=== PATIENT | male | born 1940 | race African-American/Black ===

== ENCOUNTER 2020-04-13 18:16 | Inpatient (IN) ==
[2020-04-13] MEDS ORDERED: HEPARIN/NACL 0.9% 2 UNITS/ML 1,000 ML IV ONE (19:07)
[2020-04-13] MEDS ORDERED: LIDOCAINE 1% 20 ML VIAL ONE (19:07)
[2020-04-13] MEDS ORDERED: fentaNYL 100 MCG/2 ML VIAL ONE (19:13)
[2020-04-13] MEDS ORDERED: MIDAZOLAM 2 MG/2 ML VIAL ONE ×2 (19:13→20:07)
[2020-04-13] MEDS ORDERED: HEPARIN 5,000 UNIT/1 ML VIAL ONE ×2 (20:31→20:55)
[2020-04-13] MEDS ORDERED: METOPROLOL TARTRATE 5 MG/5 ML VIAL IV ONE ×2 (20:50→21:00)
[2020-04-13] MEDS ORDERED: HEPARIN/NACL 0.9% 2 UNITS/ML 500 ML IV ONE (20:52)
[2020-04-13] MEDS ORDERED: ZALEPLON 5 MG CAPSULE PO PRN (21:07)
[2020-04-13] MEDS ORDERED: ALBUTEROL 2.5 MG/3 ML NEB RESP TX PRN ×2 (21:07)
[2020-04-13] MEDS ORDERED: DEXTROSE 50% 25 GM/50 ML VIAL IV PRN (21:07)
[2020-04-13] MEDS ORDERED: hydrALAZINE 20 MG/1 ML VIAL IV PRN (21:07)
[2020-04-13] MEDS ORDERED: DOCUSATE SODIUM 100 MG CAPSULE PO PRN (21:07)
[2020-04-13] MEDS ORDERED: ONDANSETRON 4 MG/2 ML VIAL IV PRN ×2 (21:07)
[2020-04-13] MEDS ORDERED: GLUCAGON 1 MG VIAL IM PRN (21:07)
[2020-04-13] MEDS ORDERED: ACETAMINOPHEN 325 MG TABLET PO PRN (21:07)
[2020-04-13] MEDS ORDERED: NIFEdipine 10 MG CAPSULE PO PRN (22:05)
[2020-04-13] MEDS ORDERED: INFLUENZA VIRUS VACCINE 0.5 ML SYRINGE IM ONE (22:12)
[2020-04-14 02:46] LABS: ABG Base Excess -0.4 MMOL/L (-2.5-2.5); ABG HCO3 25.4 MMOL/L (20-26); ABG PCO2 46.7 MM HG (35-48); ABG PH 7.354 (7.35-7.45); ABG PO2 71.9 MM HG (80-95); ABG TCO2 26.9 MMOL/L (23-27); Allen Test Positive
[2020-04-14 03:45] LABS: Basophils % 0.3 % (0.0-0.8); Eosinophils % 0.1 % (0.00-10.9); Hematocrit 33.2 VOL% (42.0-52.0); Hemoglobin 10.2 GM/DL (14.0-18.0); Immature Granulocytes % 1.5 %; Immature Granulocytes Absolute 0.23 #; Lymphocytes % 6.4 % (21.2-54.2); Mean Corpuscular HGB Conc 30.7 GM/DL (32-36); Mean Corpuscular Volume 84.5 FL (87-102); Mean Platelet Volume 10.4 FL (9.6-12.0); Monocytes % 4.8 % (1.7-12.7); Neutrophils % 86.9 % (38.7-73.9); Platelet Count 170 T/CUMM (130-400); Red Blood Count 3.93 MC/CUMM (3.8-5.5); White Blood Count 15.6 T/CUMM (4-12)
[2020-04-14 04:06] LABS: Alanine Aminotransferase < 9 U/L (16-61); Albumin 2.8 G/DL (3.4-5.0); Alkaline Phosphatase 84 U/L (45-117); Aspartate Amino Transferase 19 U/L (0-37); Blood Urea Nitrogen 20 MG/DL (7-18); Calcium 8.7 MG/DL (8.5-10.1); Estimated Glom Filtration Rate 107 ML/MIN; Glucose 177 MG/DL (74-106); Osmolality,Calculated 281.7 MOS/KG (273-304); Total Protein 6.4 G/DL (6.4-8.3)
[2020-04-14 04:24] LABS: Band Neutrophils 12 % (0-10); Lymphocytes 5 % (20-55); Segmented Neutrophils 77 % (50-85); Total Cells Counted 100
[2020-04-14 04:25] LABS: Hypochromasia 1+; Microcytosis Slight; Ovalocytes Few; Platelet Estimate Adequate
[2020-04-14] MEDS: INSULIN REGULAR 100 UNIT/ML SUBCUT SCH ×4 (07:42→21:15)
[2020-04-14] MEDS ORDERED: MAGNESIUM SULF RIDER 2 GM in PREMIX 1 EACH IV ONE (08:17)
[2020-04-14] MEDS: GABAPENTIN 100 MG CAPSULE PO SCH ×3 (08:58→21:15)
[2020-04-14] MEDS: glipiZIDE 10 MG TABLET PO SCH (08:58)
[2020-04-14] MEDS: PANTOPRAZOLE 40 MG TABLET PO SCH (08:58)
[2020-04-14] MEDS: SPIRONOLACTONE 25 MG TABLET PO SCH (08:58)
[2020-04-14] MEDS: RIVAROXABAN 15 MG TABLET PO SCH ×2 (08:58→17:00)
[2020-04-14] MEDS: CHOLECALCIFEROL 1,000 UNIT TABLET PO SCH (08:59)
[2020-04-14] MEDS ORDERED: PANTOPRAZOLE 40 MG TABLET PO SCH (09:00)
[2020-04-14] MEDS ORDERED: DIGOXIN 0.5 MG/2 ML AMP IV ONE ×2 (16:40→18:00)
[2020-04-14] MEDS ORDERED: METOPROLOL TARTRATE 5 MG/5 ML VIAL IV ONE (18:11)
[2020-04-14] MEDS ORDERED: AMIODARONE INJ 150 MG in DEXTROSE 5% 100 ML IV ONE (18:12)
[2020-04-14] MEDS ORDERED: AMIODARONE INJ 450 MG in DEXTROSE 5% 241 ML IV SCH (18:30)
[2020-04-14] MEDS: ATORVASTATIN 40 MG TABLET PO SCH (21:15)
[2020-04-15 04:11] LABS: Basophils % 0.2 % (0.0-0.8); Eosinophils # 0.3 10*3/uL (0.0-0.87); Eosinophils % 2.5 % (0.00-10.9); Hematocrit 31.3 VOL% (42.0-52.0); Hemoglobin 9.6 GM/DL (14.0-18.0); Immature Granulocytes % 1.4 %; Immature Granulocytes Absolute 0.17 #; Lymphocytes # 0.9 10*3/uL (1.4-4.0); Lymphocytes % 7.4 % (21.2-54.2); Mean Corpuscular HGB Conc 30.7 GM/DL (32-36); Mean Corpuscular Volume 85.5 FL (87-102); Monocytes % 4.3 % (1.7-12.7); Neutrophils % 84.2 % (38.7-73.9); Platelet Count 158 T/CUMM (130-400); Red Blood Count 3.66 MC/CUMM (3.8-5.5); Red Cell Distribution Width 15.1 % (9.3-17.3); White Blood Count 11.7 T/CUMM (4-12)
[2020-04-15 04:32] LABS: Calcium 8.8 MG/DL (8.5-10.1)
[2020-04-15 04:42] LABS: Band Neutrophils 2 % (0-10); Eosinophils 2 % (0-10); Hypochromasia Slight; Lymphocytes 4 % (20-55); Microcytosis Slight; Platelet Estimate Normal; Segmented Neutrophils 89 % (50-85); Total Cells Counted 100
[2020-04-15] MEDS: INSULIN REGULAR 100 UNIT/ML SUBCUT SCH ×4 (08:37→22:49)
[2020-04-15] MEDS: CHOLECALCIFEROL 1,000 UNIT TABLET PO SCH (09:10)
[2020-04-15] MEDS: GABAPENTIN 100 MG CAPSULE PO SCH ×3 (09:11→20:50)
[2020-04-15] MEDS: glipiZIDE 10 MG TABLET PO SCH (09:11)
[2020-04-15] MEDS: AMIODARONE 200 MG TABLET PO SCH ×2 (09:11→20:50)
[2020-04-15] MEDS: RIVAROXABAN 15 MG TABLET PO SCH ×2 (09:11→16:25)
[2020-04-15] MEDS: PANTOPRAZOLE 40 MG TABLET PO SCH (09:11)
[2020-04-15] MEDS: SPIRONOLACTONE 25 MG TABLET PO SCH (09:11)
[2020-04-15] MEDS: MORPHINE 4 MG/1 ML VIAL IV PRN ×2 (19:07→22:49)
[2020-04-15] MEDS: ATORVASTATIN 40 MG TABLET PO SCH (20:49)
[2020-04-16] MEDS: MORPHINE 4 MG/1 ML VIAL IV PRN ×3 (03:18→23:46)
[2020-04-16 04:36] LABS: Calcium 8.7 MG/DL (8.5-10.1); Osmolality,Calculated 280.7 MOS/KG (273-304)
[2020-04-16] MEDS ORDERED: DIAZEPAM 5 MG TABLET PO ONE (10:06)
[2020-04-16 10:58] LABS: INR 1.7; PT Patient Result 17.7 SECS (9.8-11.9)
[2020-04-16] MEDS: INSULIN REGULAR 100 UNIT/ML SUBCUT SCH ×3 (13:18→21:57)
[2020-04-16] MEDS: AMIODARONE 200 MG TABLET PO SCH ×3 (15:26→21:56)
[2020-04-16] MEDS: RIVAROXABAN 15 MG TABLET PO SCH ×2 (15:26→17:08)
[2020-04-16] MEDS: GABAPENTIN 100 MG CAPSULE PO SCH ×3 (15:26→21:57)
[2020-04-16] MEDS: glipiZIDE 10 MG TABLET PO SCH (15:26)
[2020-04-16] MEDS: SODIUM CHLORIDE 0.45% 1,000 ML IV SCH (15:27)
[2020-04-16] MEDS: SPIRONOLACTONE 25 MG TABLET PO SCH (15:35)
[2020-04-16] MEDS: CHOLECALCIFEROL 1,000 UNIT TABLET PO SCH (15:35)
[2020-04-16] MEDS: PANTOPRAZOLE 40 MG TABLET PO SCH (15:35)
[2020-04-16] MEDS: ATORVASTATIN 40 MG TABLET PO SCH (21:57)
[2020-04-17] MEDS: MORPHINE 4 MG/1 ML VIAL IV PRN ×2 (02:50→20:23)
[2020-04-17 06:36] LABS: Basophils % 0.3 % (0.0-0.8); Eosinophils # 0.3 10*3/uL (0.0-0.87); Eosinophils % 2.7 % (0.00-10.9); Hematocrit 31.6 VOL% (42.0-52.0); Hemoglobin 9.9 GM/DL (14.0-18.0); Immature Granulocytes % 0.5 %; Immature Granulocytes Absolute 0.05 #; Lymphocytes # 0.8 10*3/uL (1.4-4.0); Lymphocytes % 8.1 % (21.2-54.2); Mean Corpuscular HGB Conc 31.3 GM/DL (32-36); Mean Corpuscular Volume 83.6 FL (87-102); Mean Platelet Volume 10.8 FL (9.6-12.0); Monocytes % 5.9 % (1.7-12.7); Neutrophils % 82.5 % (38.7-73.9); Platelet Count 191 T/CUMM (130-400); Red Blood Count 3.78 MC/CUMM (3.8-5.5); Red Cell Distribution Width 15.2 % (9.3-17.3); White Blood Count 9.5 T/CUMM (4-12)
[2020-04-17 06:48] LABS: Calcium 9.1 MG/DL (8.5-10.1); Osmolality,Calculated 277.8 MOS/KG (273-304)
[2020-04-17] MEDS: INSULIN REGULAR 100 UNIT/ML SUBCUT SCH ×4 (08:10→21:49)
[2020-04-17] MEDS: PANTOPRAZOLE 40 MG TABLET PO SCH (10:10)
[2020-04-17] MEDS: SPIRONOLACTONE 25 MG TABLET PO SCH (10:10)
[2020-04-17] MEDS: RIVAROXABAN 15 MG TABLET PO SCH ×2 (10:10→17:04)
[2020-04-17] MEDS: AMIODARONE 200 MG TABLET PO SCH (10:10)
[2020-04-17] MEDS: GABAPENTIN 100 MG CAPSULE PO SCH ×3 (10:10→21:49)
[2020-04-17] MEDS: CHOLECALCIFEROL 1,000 UNIT TABLET PO SCH (10:11)
[2020-04-17] MEDS: glipiZIDE 10 MG TABLET PO SCH (10:11)
[2020-04-17] MEDS: SODIUM CHLORIDE 0.45% 1,000 ML IV SCH (16:12)
[2020-04-17] MEDS: ATORVASTATIN 40 MG TABLET PO SCH (21:49)
[2020-04-18] MEDS: MORPHINE 4 MG/1 ML VIAL IV PRN ×2 (00:11→03:30)
[2020-04-18 05:30] LABS: Basophils % 0.4 % (0.0-0.8); Eosinophils # 0.2 10*3/uL (0.0-0.87); Eosinophils % 2.8 % (0.00-10.9); Hematocrit 30.1 VOL% (42.0-52.0); Hemoglobin 9.3 GM/DL (14.0-18.0); Immature Granulocytes Absolute 0.08 #; Lymphocytes # 0.9 10*3/uL (1.4-4.0); Mean Corpuscular HGB Conc 30.9 GM/DL (32-36); Mean Corpuscular Volume 82.5 FL (87-102); Mean Platelet Volume 10.3 FL (9.6-12.0); Monocytes % 7.1 % (1.7-12.7); Neutrophils % 77.7 % (38.7-73.9); Platelet Count 213 T/CUMM (130-400); Red Blood Count 3.65 MC/CUMM (3.8-5.5); Red Cell Distribution Width 15.2 % (9.3-17.3); White Blood Count 7.8 T/CUMM (4-12)
[2020-04-18 06:06] LABS: Calcium 9.4 MG/DL (8.5-10.1); Osmolality,Calculated 281.5 MOS/KG (273-304)
[2020-04-18] MEDS: INSULIN REGULAR 100 UNIT/ML SUBCUT SCH ×4 (09:08→21:16)
[2020-04-18] MEDS: CHOLECALCIFEROL 1,000 UNIT TABLET PO SCH (09:09)
[2020-04-18] MEDS: TAMSULOSIN 0.4 MG CAPSULE PO SCH (09:09)
[2020-04-18] MEDS: glipiZIDE 10 MG TABLET PO SCH (09:10)
[2020-04-18] MEDS: SPIRONOLACTONE 25 MG TABLET PO SCH (09:10)
[2020-04-18] MEDS: RIVAROXABAN 15 MG TABLET PO SCH ×2 (09:10→17:17)
[2020-04-18] MEDS: POTASSIUM CHLORIDE 20 MEQ TABLET PO SCH (09:10)
[2020-04-18] MEDS: PANTOPRAZOLE 40 MG TABLET PO SCH (09:10)
[2020-04-18] MEDS: GABAPENTIN 100 MG CAPSULE PO SCH ×3 (09:17→21:16)
[2020-04-18] MEDS: SODIUM CHLORIDE 0.45% 1,000 ML IV SCH (09:46)
[2020-04-18] MEDS: ATORVASTATIN 40 MG TABLET PO SCH (21:02)
[2020-04-19] MEDS: INSULIN REGULAR 100 UNIT/ML SUBCUT SCH ×4 (08:33→20:51)
[2020-04-19] MEDS: RIVAROXABAN 15 MG TABLET PO SCH ×2 (08:50→17:50)
[2020-04-19] MEDS: glipiZIDE 10 MG TABLET PO SCH (08:50)
[2020-04-19] MEDS: CHOLECALCIFEROL 1,000 UNIT TABLET PO SCH (08:50)
[2020-04-19] MEDS: PANTOPRAZOLE 40 MG TABLET PO SCH (08:51)
[2020-04-19] MEDS: TAMSULOSIN 0.4 MG CAPSULE PO SCH (08:51)
[2020-04-19] MEDS: SPIRONOLACTONE 25 MG TABLET PO SCH (08:51)
[2020-04-19] MEDS: POTASSIUM CHLORIDE 20 MEQ TABLET PO SCH (08:51)
[2020-04-19] MEDS: GABAPENTIN 100 MG CAPSULE PO SCH ×3 (08:53→20:52)
[2020-04-19] MEDS: SODIUM CHLORIDE 0.45% 1,000 ML IV SCH (18:23)
[2020-04-19] MEDS: ATORVASTATIN 40 MG TABLET PO SCH (20:50)
[2020-04-20] MEDS: INSULIN REGULAR 100 UNIT/ML SUBCUT SCH ×2 (08:28→12:02)
[2020-04-20] MEDS: RIVAROXABAN 15 MG TABLET PO SCH (08:59)
[2020-04-20] MEDS: PANTOPRAZOLE 40 MG TABLET PO SCH (09:00)
[2020-04-20] MEDS: SPIRONOLACTONE 25 MG TABLET PO SCH (09:01)
[2020-04-20] MEDS: glipiZIDE 10 MG TABLET PO SCH (09:02)
[2020-04-20] MEDS: POTASSIUM CHLORIDE 20 MEQ TABLET PO SCH (09:02)
[2020-04-20] MEDS: CHOLECALCIFEROL 1,000 UNIT TABLET PO SCH (09:02)
[2020-04-20] MEDS: TAMSULOSIN 0.4 MG CAPSULE PO SCH (09:03)
[2020-04-20] MEDS: GABAPENTIN 100 MG CAPSULE PO SCH (09:03)
[2020-04-20 16:16] VITALS: BP 123/69
== END 2020-04-20 16:56 | disposition home or self-care (01) | DRG 163 ==
LOC: N.CC → SUATTDRO 19:40 → INTOOBSV 19:40 → N.CC 19:40 → SUATTDRO 21:07 → N.TELEN 04-15 14:13
PROVIDERS: ADMIT Internal Medicine Cardiovascular Disease; ATTEND Internal Medicine

== ENCOUNTER 2020-08-15 17:47 | Observation (INO) ==
[2020-08-15] MEDS ORDERED: ONDANSETRON 4 MG/2 ML VIAL IV STA ×2 (18:32→19:15)
[2020-08-15 18:52] LABS: Basophils % 0.2 % (0.0-0.8); Eosinophils # 0.2 10*3/uL (0.0-0.87); Eosinophils % 2.5 % (0.00-10.9); Hematocrit 35.7 VOL% (42.0-52.0); Immature Granulocytes % 0.2 %; Immature Granulocytes Absolute 0.01 #; Lymphocytes # 2.1 10*3/uL (1.4-4.0); Lymphocytes % 33.6 % (21.2-54.2); Mean Corpuscular HGB Conc 30.8 GM/DL (32-36); Mean Corpuscular Volume 79.2 FL (87-102); Mean Platelet Volume 10.4 FL (9.6-12.0); Neutrophils % 58.5 % (38.7-73.9); Platelet Count 199 T/CUMM (130-400); Red Blood Count 4.51 MC/CUMM (3.8-5.5); Red Cell Distribution Width 19.2 % (9.3-17.3); White Blood Count 6.4 T/CUMM (4-12)
[2020-08-15 19:13] LABS: INR 1.2; PT Patient Result 12.5 SECS (9.8-11.9); Partial Thromboplastin Time 31.3 SECS (23.9-33.8)
[2020-08-15 19:14] LABS: Alanine Aminotransferase 26 U/L (16-61); Albumin 3.3 G/DL (3.4-5.0); Alkaline Phosphatase 109 U/L (45-117); Aspartate Amino Transferase 16 U/L (0-37); Blood Urea Nitrogen 19 MG/DL (7-18); Calcium 9.2 MG/DL (8.5-10.1); Carbon Dioxide 29 MMOL/L (21-32); Estimated Glom Filtration Rate 108 ML/MIN; Glucose 86 MG/DL (74-106); Osmolality,Calculated 277.5 MOS/KG (273-304); Potassium 3.9 MMOL/L (3.5-5.1); Sodium 139 MMOL/L (136-145); Troponin I < 0.015 NG/ML (0.00-0.045)
[2020-08-15] MEDS ORDERED: MECLIZINE 25 MG TABLET PO STA (19:16)
[2020-08-15 19:25] LABS: Bilirubin,Urine Negative (Negative); Blood, Urine Negative (Negative); Calcium Oxalate Crystals,Urine Occasional /HPF (Few); Glucose,Urine (UA) Negative (Negative); Hyaline Casts,Urine 9 /LPF (0-3); Ketones,Urine Negative (Negative); Mucus,Urine Few /LPF (Occasional); Nitrite,Urine Negative (Negative); Protein,Urine Negative; RBC,Urine 5 /HPF (0-4); Squamous Epithelial Cell,Urine Occasional /HPF (0-10); Urine Appearance Slightly Hazy (Clear); Urine Color Yellow (Yellow); Urine Specific Gravity 1.018 (1.001-1.035)
[2020-08-15 19:32] LABS: Barbiturates Screen,Urine Negative (Negative); Benzodiazepines Screen,Urine Negative (Negative); Cannabinoid Screen,Urine Negative (Negative); Opiate Screen,Urine Negative (Negative); Phencyclidine Screen,Urine Negative (Negative)
[2020-08-15] MEDS ORDERED: DEXTROSE 50% 25 GM/50 ML VIAL IV PRN (20:17)
[2020-08-15] MEDS ORDERED: ACETAMINOPHEN 325 MG TABLET PO PRN (20:17)
[2020-08-15] MEDS ORDERED: ONDANSETRON 4 MG/2 ML VIAL IV PRN (20:17)
[2020-08-15] MEDS ORDERED: GLUCAGON 1 MG VIAL IM PRN (20:17)
[2020-08-15] MEDS ORDERED: SODIUM CHLORIDE 0.9% 1,000 ML IV SCH (20:30)
[2020-08-15] MEDS: INSULIN REGULAR 100 UNIT/ML SUBCUT SCH (22:02)
[2020-08-15] MEDS: GABAPENTIN 100 MG CAPSULE PO SCH (22:03)
[2020-08-16 06:13] LABS: Calcium 8.9 MG/DL (8.5-10.1); Osmolality,Calculated 280.4 MOS/KG (273-304); Potassium 3.8 MMOL/L (3.5-5.1); Risk Ratio 3.08; VLDL CHOLESTEROL 13.2 MG/DL
[2020-08-16 06:39] LABS: Basophils % 0.3 % (0.0-0.8); Eosinophils # 0.2 10*3/uL (0.0-0.87); Eosinophils % 2.9 % (0.00-10.9); Hematocrit 36.7 VOL% (42.0-52.0); Hemoglobin 10.9 GM/DL (14.0-18.0); Immature Granulocytes % 0.3 %; Immature Granulocytes Absolute 0.02 #; Lymphocytes # 2.1 10*3/uL (1.4-4.0); Lymphocytes % 35.9 % (21.2-54.2); Mean Corpuscular HGB Conc 29.7 GM/DL (32-36); Mean Corpuscular Volume 82.7 FL (87-102); Mean Platelet Volume 10.7 FL (9.6-12.0); Monocytes % 5.1 % (1.7-12.7); Neutrophils % 55.5 % (38.7-73.9); Platelet Count 185 T/CUMM (130-400); Red Blood Count 4.44 MC/CUMM (3.8-5.5); Red Cell Distribution Width 19.5 % (9.3-17.3); White Blood Count 5.9 T/CUMM (4-12)
[2020-08-16 06:50] LABS: Anisocytosis 1+; Platelet Estimate Normal; Poikilocytosis 1+
[2020-08-16 06:51] LABS: Burr Cells Few; Ovalocytes Few
[2020-08-16] MEDS ORDERED: ATORVASTATIN 40 MG TABLET PO SCH (09:00)
[2020-08-16] MEDS ORDERED: lisinopriL 20 MG TABLET PO SCH (09:00)
[2020-08-16] MEDS ORDERED: PANTOPRAZOLE 40 MG TABLET PO SCH (09:00)
[2020-08-16] MEDS ORDERED: ASPIRIN EC 81 MG TABLET PO SCH (09:00)
[2020-08-16] MEDS ORDERED: RIVAROXABAN 20 MG TABLET PO SCH ×2 (09:00→21:00)
[2020-08-16] MEDS ORDERED: TAMSULOSIN 0.4 MG CAPSULE PO SCH (09:00)
[2020-08-16] MEDS ORDERED: SPIRONOLACTONE 25 MG TABLET PO SCH (09:00)
[2020-08-16] MEDS: INSULIN REGULAR 100 UNIT/ML SUBCUT SCH ×2 (09:08→15:14)
[2020-08-16] MEDS: GABAPENTIN 100 MG CAPSULE PO SCH ×3 (09:09→15:14)
[2020-08-16 11:56] VITALS: BP 119/75
[2020-08-17] MEDS ORDERED: glipiZIDE 10 MG TABLET PO SCH (08:00)
[2020-08-17] MEDS ORDERED: lisinopriL 20 MG TABLET PO SCH (09:00)
[2020-08-17] MEDS ORDERED: TAMSULOSIN 0.4 MG CAPSULE PO SCH (09:00)
[2020-08-17] MEDS ORDERED: FUROSEMIDE 40 MG TABLET PO SCH (09:00)
[2020-08-17] MEDS ORDERED: CHOLECALCIFEROL 1,000 UNIT TABLET PO SCH (09:00)
[2020-08-17] MEDS ORDERED: ATORVASTATIN 20 MG TABLET PO SCH (09:00)
[2020-08-17] MEDS ORDERED: POTASSIUM CHLORIDE 20 MEQ TABLET PO SCH (09:00)
[2020-08-17] MEDS ORDERED: SPIRONOLACTONE 25 MG TABLET PO SCH (09:00)
[2020-08-17] MEDS ORDERED: NON-FORMULARY MEDICATION (Omeprazole 20 mg Capsule,Delayed Release(Dr/Ec)) PO SCH (09:00)
== END 2020-08-16 15:50 | disposition home health service (06) ==
LOC: EDBD → EDUNIT# → N.4E 17:47 → N.ED 17:47 → N.4E 20:46
PROVIDERS: ADMIT Emergency Medicine; ATTEND Emergency Medicine